=== PATIENT | female | born 1980 | race Caucasian/White ===

== ENCOUNTER 2016-12-23 13:32 | Emergency (ER) | payer MEDICARE ==
[2016-12-23] MEDS ORDERED: DOXYCYCLINE HYCLATE 100 MG TABLET PO ONE (14:39)
[2016-12-23] MEDS ORDERED: PREDNISONE 20 MG TABLET PO ONE (14:39)
--- NOTE | 2016-12-23 14:41 | ER Document Report ---
HPI - HPI Patient complains to provider of: skin infection Pain Level: 4 Context: Patient is a 36-year-old female that comes emergency department for chief complaint of a painful area in her left groin, she states that she thinks it was an ingrown hair, it started over a week ago, she states she pressed on the area and she did get bloody drainage out of it but it still hurts. She also reports a cough for over 1 week with green sputum production and some sinus congestion. She denies fevers, nausea or vomiting. She denies any daily medications. She smokes. She has had a hysterectomy. - DERM Skin Color: Normal Past Medical History - General Information source: Patient - Social History Smoking Status: Current Every Day Smoker Smoking Education Provided: Yes - <3 min Frequency of alcohol use: None Drug Abuse: None Lives with: Family Family History: Reviewed & Not Pertinent - Medical History Medical History: Negative Renal/ Medical History: Denies: Hx Peritoneal Dialysis Past Surgical History: Reports: Hx Hysterectomy - Immunizations Immunizations up to date: Yes Hx Diphtheria, Pertussis, Tetanus Vaccination: Yes Vertical Provider Document - CONSTITUTIONAL General Appearance: WD/WN, No Apparent Distress - INFECTION CONTROL TRAVEL OUTSIDE OF THE [place] IN LAST 30 DAYS: No - HEENT HEENT: Atraumatic, Normal ENT Exam, Normocephalic - NECK Neck: Normal Inspection - RESPIRATORY Respiratory: Other - Fairly regular nonproductive congested sounding cough with a few coarse breath sounds, no wheezing, good air movement otherwise O2 Sat by Pulse Oximetry: 96 - CARDIOVASCULAR Cardiovascular: Regular Rate, Regular Rhythm - GI/ABDOMEN Gastrointestinal: Abdomen Soft, Abdomen Non-Tender - BACK Back: Normal Inspection - MUSCULOSKELETAL/EXTREMETIES Musculoskeletal/Extremeties: MAEW, FROM, Non-Tender - NEURO Level of Consciousness: Awake, Alert, Appropriate - DERM Integumentary: negative: Abscess - There is an erythematous somewhat tender area located in the left inguinal region adjacent to the labia majora, no induration, no fluctuance, no palpable abscess, area has an opening where it appears to have already drained, mild surrounding erythema. FRANCISCO J Quiros present during exam Course - Re-evaluation Re-evalutation: There is no induration or fluctuance suggesting an abscess, there is a opening where it already has appeared to be drained, however there is some surrounding erythema and tenderness to the area. Discussed with patient, patient will be placed on doxycycline, recommended warm compress, discussed formation of abscess and return precautions, also treating with prednisone because of smoking and ongoing cough along with the doxycycline. Discussed smoking cessation, patient states understanding and agreement. - Vital Signs Vital signs: Temp Pulse Resp BP Pulse Ox 98.1 F 100 14 138/97 H 96 12/23/16 13:44 12/23/16 13:44 12/23/16 13:44 12/23/16 13:44 12/23/16 13:44 Discharge - Discharge Clinical Impression: Skin infection, Cough, Tobacco abuse Condition: Stable Disposition: HOME, SELF-CARE Additional Instructions: There is an infected area of skin, probably the location of a hair follicle, take the doxycycline as prescribed, apply warm compress to the area. At this time there is no drainable abscess, if the area becomes hard, swollen, or he has spreading redness around the area please be seen again. Stop smoking. Take prednisone as prescribed. Also return for difficulty breathing, fever, or any other concerning or worsening symptoms. After completion of the antibiotics, take the Diflucan to avoid yeast infection. Prescriptions: Doxycycline Hyclate 100 mg PO BID #14 capsule Fluconazole [Diflucan] 150 mg PO ONCE PRN #1 tablet PRN Reason: Prednisone [Deltasone 10 mg Tablet] 10 mg PO ASDIR PRN #21 tablet PRN Reason:
[2016-12-23 15:12] VITALS: BP 130/81
== END 2016-12-23 15:11 | disposition home or self-care (01) ==
LOC: ER 13:32
DX: L08.9 Local infection of the skin and subcutaneous tissue, unspecified (principal); R05 Cough; F17.200 Nicotine dependence, unspecified, uncomplicated; Z90.710 Acquired absence of both cervix and uterus
CPT/HCPCS: 99282; A9270 ×2; J7512

== ENCOUNTER 2016-12-28 13:12 | Emergency (ER) | payer MEDICARE ==
[2016-12-28] MEDS ORDERED: ACETAMINOPHEN 325 MG TABLET PO ONE (14:20)
[2016-12-28] MEDS ORDERED: IBUPROFEN 800 MG TABLET PO ONE (14:20)
--- NOTE | 2016-12-28 14:31 | RADIOLOGY REPORT (SQ) ---
EXAM DESCRIPTION: SACRUM AND COCCYX COMPLETED DATE/TIME: 12/28/2016 2:21 pm REASON FOR STUDY: ? fx coccyx COMPARISON: None. NUMBER OF VIEWS: Three views. TECHNIQUE: AP, lateral, and tilt views of the sacrum and coccyx. LIMITATIONS: None. FINDINGS: MINERALIZATION: Normal. BONES: No acute fracture or dislocation. No worrisome bone lesions. SOFT TISSUES: No soft tissue swelling. No foreign body. OTHER: No other significant finding. IMPRESSION: NEGATIVE STUDY OF THE SACRUM AND COCCYX. TECHNICAL DOCUMENTATION: JOB ID: [id number] [employer]- All Rights Reserved
--- NOTE | 2016-12-28 14:46 | ER Document Report ---
HPI - HPI Patient complains to provider of: fell on buttocks Onset: This morning Onset/Duration: Sudden Quality of pain: Throbbing - intense Pain Level: 4 Context: 36 yo normally healthy female carrying covers and tripped going down the stairs and fell on buttocks at 0730, worried that she fx her coccyx. fx coccyx age 32, . feels the same. No radiculopathy or saddle anesthesia. Pt can't take ultram, did ok with hydrocodone. Associated Symptoms: None Exacerbated by: Movement, Walking - waddling due to pain Similar symptoms previously: Yes Recently seen / treated by doctor: No - DERM Skin Color: Normal, [place] Past Medical History - General Information source: Patient - Social History Smoking Status: Current Every Day Smoker Chew tobacco use (# tins/day): No Frequency of alcohol use: None Drug Abuse: None Family History: Reviewed & Not Pertinent Patient has suicidal ideation: No Patient has homicidal ideation: No Renal/ Medical History: Denies: Hx Peritoneal Dialysis Psychiatric Medical History: Reports: Hx Depression - anxiety Past Surgical History: Reports: Hx Appendectomy, Hx Cholecystectomy, Hx Hysterectomy, Hx Tonsillectomy - Immunizations Immunizations up to date: Yes Hx Diphtheria, Pertussis, Tetanus Vaccination: Yes Vertical Provider Document - CONSTITUTIONAL Agree With Documented VS: Yes Exam Limitations: No Limitations General Appearance: No Apparent Distress - INFECTION CONTROL TRAVEL OUTSIDE OF THE [place] IN LAST 30 DAYS: No - HEENT HEENT: Atraumatic, Normocephalic - NECK Neck: Supple - RESPIRATORY Respiratory: Breath Sounds Normal, No Respiratory Distress O2 Sat by Pulse Oximetry: 100 - CARDIOVASCULAR Cardiovascular: Regular Rate, Regular Rhythm - GI/ABDOMEN Gastrointestinal: Abdomen Soft, Abdomen Non-Tender - BACK Back: Normal Inspection - mild tender over sacrum and right ischium - MUSCULOSKELETAL/EXTREMETIES Musculoskeletal/Extremeties: MAEW, FROM, Tender - see above - NEURO Level of Consciousness: Awake, Alert Deep Tendon Reflexes: 2+ - jolanta ankle and patellar Course - Re-evaluation Re-evalutation: 12/28/16 15:13 xrays negative. I checked in [place] controlled substance website and she does not have any opiate prescription so I will give her a limited prescription for this acute pain from the fall. She is asking for an opiate pain pill prescription she states Motrin and Tylenol is not helping and she cannot take Ultram. 12/28/16 15:14 - Vital Signs Vital signs: Temp Pulse Resp BP Pulse Ox 97.9 F 116 H 20 115/90 H 100 12/28/16 13:18 12/28/16 13:18 12/28/16 13:18 12/28/16 13:18 12/28/16 13:18 Discharge - Discharge Clinical Impression: contusion coccyx Contusion of buttock Qualifiers: Encounter type: initial encounter Qualified Code(s): S30.0XXA - Contusion of lower back and pelvis, initial encounter Condition: Good Disposition: HOME, SELF-CARE Instructions: Anti-Inflammatory Medication ([facility]), Contusion ([facility]), Oral Narcotic Medication ([facility]) Additional Instructions: heat or ice to area to er if worse see orthopedics if persists Please complete the patient satisfaction survey if you get one, and return it.. If you do not receive a survey, then you can go to the [facility] website, [email or web address] and place your comments about your very good care. Thank you very much. It was a pleasure being your medical provider today. Prescriptions: Hydrocodone Bit/Acetaminophen [Hydrocodon-Acetaminophen 5-325] 1 each PO Q4HP PRN #10 tablet PRN Reason: Ibuprofen [Motrin 800 mg Tablet] 800 mg PO Q8HP PRN #30 tablet PRN Reason: Referrals: DEVONTE SIDDIQUI MD [ACTIVE STAFF] - Follow up as needed
--- NOTE | 2016-12-28 14:49 | RADIOLOGY REPORT (SQ) ---
EXAM DESCRIPTION: L SPINE WHOLE COMPLETED DATE/TIME: 12/28/2016 2:21 pm REASON FOR STUDY: ? fx coccyx COMPARISON: None. NUMBER OF VIEWS: Five views including obliques. TECHNIQUE: AP, lateral, oblique, and sacral radiographic images acquired of the lumbar spine. LIMITATIONS: None. FINDINGS: MINERALIZATION: Normal. SEGMENTATION: Normal. No transitional anatomy. ALIGNMENT: Normal. VERTEBRAE: Maintained height. No fracture or worrisome bone lesion. DISCS: Preserved height. No significant osteophytes or end plate irregularity. POSTERIOR ELEMENTS: Pedicles and facets are intact. No pars defect or posterior arch defects. HARDWARE: None in the spine. PARASPINAL SOFT TISSUES: Normal. PELVIS: Intact as visualized. No fractures or worrisome bone lesions. SI joints intact. OTHER: No other significant finding. IMPRESSION: NORMAL 5 VIEW LUMBAR SPINE. TECHNICAL DOCUMENTATION: JOB ID: [id number] [email or web address]- All Rights Reserved
[2016-12-28] MEDS ORDERED: OXYCODONE HCL IR 5 MG TABLET PO ONE (14:50)
[2016-12-28 15:21] VITALS: BP 112/86
== END 2016-12-28 15:20 | disposition home or self-care (01) ==
LOC: ER 13:12
DX: S30.0XXA Contusion of lower back and pelvis, initial encounter (principal); W10.9XXA Fall (on) (from) unspecified stairs and steps, initial encounter; Y92.009 Unspecified place in unspecified non-institutional (private) residence as the place of occurrence of the external cause; F17.200 Nicotine dependence, unspecified, uncomplicated
CPT/HCPCS: 99283; 72220; 72110; A9270 ×2

== ENCOUNTER 2016-12-30 13:07 | Emergency (ER) | payer MEDICARE ==
[2016-12-30] MEDS ORDERED: OXYCODONE-ACETAMINOPHEN 5-325 MG TABLET PO ONE (14:03)
--- NOTE | 2016-12-30 14:12 | ER Document Report ---
HPI - HPI Patient complains to provider of: Right hip and leg pain Onset: Other - 2 days Onset/Duration: Persistent Quality of pain: Sharp Pain Level: 4 Context: Patient states that she slipped falling down 5 steps 2 days ago. Patient states she landed on her bottom. Patient states she was seen here 2 days ago for this problem and denies any new injury. Patient states that she is out of pain medication and she feels as though the pain is worsening. Patient states pain radiates to lateral aspect of right thigh down to the level of her knee. Patient denies any numbness but does complain of tingling to right leg. Patient denies any urinary retention or incontinence. Patient denies any fever or IV drug use. Patient denies any previous history of any low back problems. Associated Symptoms: Other - Low back, right leg pain Exacerbated by: Movement Relieved by: Denies Similar symptoms previously: No Recently seen / treated by doctor: Yes - ROS ROS below otherwise negative: Yes Systems Reviewed and Negative: Yes All other systems reviewed and negative - CONSTITUTIONAL Constitutional: DENIES: Fever - NEURO Neurology: DENIES: Weakness - GASTROINTESTINAL Gastrointestinal: DENIES: Nausea - URINARY Notes: No retention - MUSCULOSKELETAL Musculoskeletal: REPORTS: Extremity pain, Back Pain - DERM Skin Color: Normal Skin Problems: None Past Medical History - General Information source: Patient - Social History Smoking Status: Current Every Day Smoker Drug Abuse: None Occupation: None Lives with: Family Family History: Reviewed & Not Pertinent Renal/ Medical History: Denies: Hx Peritoneal Dialysis Psychiatric Medical History: Reports: Hx Anxiety, Hx Depression Past Surgical History: Reports: Hx Appendectomy, Hx Cholecystectomy, Hx Hysterectomy, Hx Tonsillectomy - Immunizations Immunizations up to date: Yes Hx Diphtheria, Pertussis, Tetanus Vaccination: Yes Vertical Provider Document - CONSTITUTIONAL Agree With Documented VS: Yes Exam Limitations: No Limitations General Appearance: WD/WN, No Apparent Distress Notes: PHYSICAL EXAMINATION: GENERAL: Well-appearing, well-nourished and in no acute distress. HEAD: Atraumatic, normocephalic. EYES: sclera clear, anicteric, conjunctiva are normal. ENT: nares patent, Moist mucous membranes. NECK: Normal range of motion, supple no lymphadenopathy LUNGS: respirations unlabored HEART: Regular rate and rhythm without murmurs EXTREMITIES: Normal range of motion, no pitting or edema. No cyanosis. Gait normal, pt ambulates without difficulty BACK: Right lower lumbar paraspinal tenderness, lower lumbar midline tenderness , no deformities or step-offs. No CVA tenderness. NEUROLOGICAL: Cranial nerves grossly intact. Normal speech, normal gait. No saddle anesthesia. Negative straight leg test, no footdrop PSYCH: Normal mood, normal affect. SKIN: Warm, Dry, normal turgor, no rashes or lesions noted. - INFECTION CONTROL TRAVEL OUTSIDE OF THE [place] IN LAST 30 DAYS: No - RESPIRATORY O2 Sat by Pulse Oximetry: 99 Course - Re-evaluation Re-evalutation: The patient presents with low back pain without signs of spinal cord compression , cauda equina syndrome, infection, aneurysm, or other serious etiology. The patient is neurologically intact. Given the extremely risk of these diagnoses further testing and evaluation for these possibilities does not appear to be indicated at this time. Patient has been instructed to return if the symptoms worsen or change in any way. 12/30/16 14:12 Review of controlled substance database demonstrates that patient only received narcotic prescription from the ER 2 days ago. Patient advised of narcotic pain policy procedure in the emergency department. Patient encouraged to follow-up with the primary doctor for further evaluation and management of any continued back pain. - Vital Signs Vital signs: Temp Pulse Resp BP Pulse Ox 97.6 F 92 16 127/96 H 99 12/30/16 13:12 12/30/16 13:12 12/30/16 13:12 12/30/16 13:12 12/30/16 13:12 - Diagnostic Test Radiology reviewed: Reports reviewed - From previous ER visit Discharge - Discharge Clinical Impression: Low back pain Qualifiers: Chronicity: acute Back pain laterality: right Sciatica presence: with sciatica Sciatica laterality: sciatica of right side Qualified Code(s): M54.41 - Lumbago with sciatica, right side Radiculopathy Qualifiers: Spinal region: unspecified Qualified Code(s): M54.10 - Radiculopathy, site unspecified Condition: Stable Disposition: HOME, SELF-CARE Instructions: Family Physicians / Practices, Radiculopathy ([facility]) Additional Instructions: Return immediately for any new or worsening symptoms Followup with your primary care provider, call tomorrow to make a followup appointment LOW BACK PAIN: Three out of every four people will have an episode of disabling back pain during their lifetime. Most commonly the pain is due to straining of the muscles and ligaments in the low back. Usual treatment includes: (1) Rest on a firm surface. Avoid lying on your stomach. (2) Ice pack the painful area. After a few days, gentle heat may be used intermittently to relax the area, or ice packs can be continued. (3) Medication may be needed -- muscle relaxers and antiinflammatory medicines are commonly used. (4) As the back improves, exercises are prescribed to strengthen the back and abdominal muscles. Your doctor will advise you on the proper care for your back at each stage in your recovery. You may be better in a few days -- or healing may take several weeks. If new symptoms of a "herniated disc" (radiation of pain, numbness, or tingling down the back of the leg or weakness in the leg) occur, you should be re-examined. Further testing may be necessary. ORAL NARCOTIC MEDICATION: You have been given a prescription for pain control. This medication is a narcotic. It's best taken with food, as nausea can result if taken on an empty stomach. Don't operate machinery or drive within six hours of taking this medication. Do not combine this medicine with alcohol, or with any medication which can cause sedation (such as cold tablets or sleeping pills) unless you get permission from the physician. Narcotics tend to cause constipation. If possible, drink plenty of fluids and eat a diet high in fiber and fruits. Please be aware that prescription narcotics also have the potential for abuse. People become addicted to these medications because of the general sense of wellbeing that they induce. This feeling along with a significant reduction in tension, anxiety, and aggression provides a stimulating seductive quality to these drugs. Once your pain is under control, we encourage you to discard your unused narcotics. ICE PACKS: Apply ice packs frequently against the painful area. Many different schedules are recommended, such as "20 minutes on, 20 minutes off" or "one hour ice, two hours rest." If you need to work, you may need to go longer between ice treatments. You should plan to have the area ice packed AT LEAST one fourth of the time. The ice should be applied over the wrap, tape, or splint, or over a layer of cloth -- not directly against the skin. Some ice bags have a built-in cloth and can be put directly on the skin. WARM PACKS: After approximately two days, apply gentle heat (such as a heating pad or hot water bottle) for about 20 to 30 minutes about every two hours -- at least four times daily. Warmth and elevation will help you make a more rapid recovery , and will ease the pain considerably. Do not use HOT heat, and never apply heat for longer than 30 minutes. The continuous heat can invisibly damage skin and muscles -- even when no burn is seen on the surface. Damaged muscles can make you MORE sore. FOLLOW-UP CARE: If you have been referred to a physician for follow-up care, call the physician s office for an appointment as you were instructed or within the next two days. If you experience worsening or a significant change in your symptoms, notify the physician immediately or return to the Emergency Department at any time for re-evaluation. Prescriptions: Oxycodone HCl/Acetaminophen [Percocet 5-325 mg Tablet] 1 tab PO ASDIR PRN #12 tablet PRN Reason: Referrals: [facility] [Provider Group] - Follow up as needed [facility] [Provider Group] - Follow up as needed
[2016-12-30 14:33] VITALS: BP 119/75
== END 2016-12-30 14:33 | disposition home or self-care (01) ==
LOC: ER 13:07
DX: M54.41 Lumbago with sciatica, right side (principal); M54.10 Radiculopathy, site unspecified; W10.9XXA Fall (on) (from) unspecified stairs and steps, initial encounter; F17.200 Nicotine dependence, unspecified, uncomplicated
CPT/HCPCS: 99282; A9270

== ENCOUNTER → 2017-02-22 | Outpatient (CLI) | payer MEDICARE, MEDICAID ==
--- NOTE | 2017-02-22 14:23 | RADIOLOGY REPORT (SQ) ---
EXAM DESCRIPTION: MRI LT LOWER JOINT WITHOUT COMPLETED DATE/TIME: 02/22/2017 1:41 pm REASON FOR STUDY: SPRAIN OF ANTERIOR CRUCIATE LIGAMENT OF LEFT KNEE (S83.512A) S83.512A SPRAIN OF A NTERIOR CRUCIATE LIGAMENT OF LEFT KNEE, COMPARISON: None. TECHNIQUE: Leftknee images acquired and stored on PACS. Multiplanar images include fat sensitive se quences as T1, water sensitive sequences as FST2 or STIR, cartilage sensitive sequences as FSPD, and gradient echo sequences. LIMITATIONS: None. FINDINGS: JOINT AND BURSAE: No effusion. BONE CORTEX AND MARROW: No alteration of signal to suggest marrow replacement. No worrisome bone lesi ons. No occult fracture. ACL: Intact anterior band on sagittal T2 and gradient echo images 12 and 13. No degeneration or gang lion cyst. PCL: Intact. MCL: Intact. No periligamentous edema or fluid. LCL: Intact. No periligamentous edema or fluid. MEDIAL MENISCUS: No tears. No abnormal signal. LATERAL MENISCUS: No tears. No abnormal signal. MEDIAL COMPARTMENT: Cartilage preserved. No bone bruises or reactive marrow edema. No osteophytes. LATERAL COMPARTMENT: Cartilage preserved. No bone bruises or reactive marrow edema. No osteophytes. PATELLA: No chondromalacia. No subchondral cysts. Medial and lateral retinacula intact. EXTENSOR MECHANISM: Intact. Quadriceps and patella tendons normal. SOFT TISSUES: Adjacent muscles and subcutaneous tissues normal. Normal flow void in popliteal artery and vein. OTHER: No other significant finding. IMPRESSION: NORMAL MRI OF THE KNEE. TECHNICAL DOCUMENTATION: JOB ID: [id number] [employer]- All Rights Reserved
== END ==
LOC: RAD 12:35
PROVIDERS: ATTEND Family Medicine
DX: S83.512A Sprain of anterior cruciate ligament of left knee, initial encounter (principal); X58.XXXA Exposure to other specified factors, initial encounter

== ENCOUNTER → 2017-06-19 | Outpatient (CLI) | payer MEDICARE, MEDICAID ==
[2017-06-19 13:53] LABS: ABSOLUTE BASOPHILS # (AUTO) 0.1 10^3/uL (0.0-0.2); ABSOLUTE EOSINOPHILS # (AUTO) 0.3 10^3/uL (0.0-0.6); ABSOLUTE LYMPHOCYTES (AUTO) 4.1 10^3/uL (0.5-4.7); ABSOLUTE MONOCYTES (AUTO) 0.5 10^3/uL (0.1-1.4); ABSOLUTE NEUT (AUTO) 4.1 10^3/uL (1.7-8.2); EOSINOPHILS % (AUTO) 3.4 % (0-6); HEMATOCRIT 42.5 % (36.0-47.0); HEMOGLOBIN 14.6 g/dL (12.0-15.5); LYMPHOCYTES % (AUTO) 45.2 % (13-45); MEAN CORPUSCULAR HEMOGLOBIN 29.8 pg (27.0-33.4); MEAN CORPUSCULAR HGB CONC 34.3 g/dL (32.0-36.0); MEAN CORPUSCULAR VOLUME 87 fl (80-97); MONOCYTES % (AUTO) 5.4 % (3-13); PLATELET COUNT 317 10^3/uL (150-450); RED BLOOD COUNT 4.89 10^6/uL (3.72-5.28); RED CELL DISTRIBUTION WIDTH 13.1 % (11.5-14.0); TOTAL CELLS COUNTED % (AUTO) 100 %
--- NOTE | 2017-06-19 14:05 | EKG REPORT ---
SEVERITY:- BORDERLINE ECG - SINUS RHYTHM LEFT ATRIAL ABNORMALITY : Confirmed by: Igor Adame MD 19-Jun-2017 14:04:05
[2017-06-19 14:08] LABS: ALANINE AMINOTRANSFERASE 31 U/L (9-52); ALBUMIN 4.5 g/dL (3.5-5.0); ALKALINE PHOSPHATASE 69 U/L (38-126); ANION GAP 9 (5-19); ASPARTATE AMINO TRANSFERASE 23 U/L (14-36); BILIRUBIN,DIRECT 0.2 mg/dL (0.0-0.4); BILIRUBIN,TOTAL 0.5 mg/dL (0.2-1.3); BLOOD UREA NITROGEN 13 mg/dL (7-20); CALCIUM 9.8 mg/dL (8.4-10.2); CARBON DIOXIDE 30 mmol/L (22-30); CHLORIDE 104 mmol/L (98-107); GLUCOSE 100 mg/dL (75-110); POTASSIUM 5.3 mmol/L (3.6-5.0); SODIUM 143.3 mmol/L (137-145); TOTAL PROTEIN 6.9 g/dL (6.3-8.2)
--- NOTE | 2017-06-19 14:23 | RADIOLOGY REPORT (SQ) ---
EXAM DESCRIPTION: CHEST 2 VIEWS COMPLETED DATE/TIME: 06/19/2017 1:23 pm REASON FOR STUDY: ENCOUNTER FOR PREPROCEDURAL RESPIRATORY EXAMINATION COMPARISON: None. TECHNIQUE: Frontal and lateral radiographic views of the chest acquired. NUMBER OF VIEWS: Two view. LIMITATIONS: None. FINDINGS: LUNGS AND PLEURA: No opacities, masses or pneumothorax. No pleural effusion. MEDIASTINUM AND HILAR STRUCTURES: No masses or contour abnormalities. HEART AND VASCULAR STRUCTURES: Heart normal size. No evidence for failure. BONES: No acute findings. HARDWARE: None in the chest. OTHER: No other significant finding. IMPRESSION: NO SIGNIFICANT RADIOGRAPHIC FINDING IN THE CHEST. TECHNICAL DOCUMENTATION: JOB ID: [id number] [employer]- All Rights Reserved Reading location - IP/workstation name: [email or web address]
== END ==
LOC: RAD 13:05
PROVIDERS: ATTEND Surgery
DX: Z01.810 Encounter for preprocedural cardiovascular examination (principal); Z01.811 Encounter for preprocedural respiratory examination; Z01.812 Encounter for preprocedural laboratory examination; Z01.818 Encounter for other preprocedural examination; E66.01 Morbid (severe) obesity due to excess calories; K21.9 Gastro-esophageal reflux disease without esophagitis; R53.82 Chronic fatigue, unspecified
CPT/HCPCS: 36415; 71046; 80053; 84443; 85025; 93005; 93010

== ENCOUNTER 2017-08-23 22:25 | Emergency (ER) | payer MEDICARE, MEDICAID ==
[2017-08-24 00:30] LABS: ABSOLUTE BASOPHILS # (AUTO) 0.1 10^3/uL (0.0-0.2); ABSOLUTE EOSINOPHILS # (AUTO) 0.1 10^3/uL (0.0-0.6); ABSOLUTE MONOCYTES (AUTO) 1.4 10^3/uL (0.1-1.4); ABSOLUTE NEUT (AUTO) 10.8 10^3/uL (1.7-8.2); BASOPHILS % (AUTO) 0.5 % (0-2); EOSINOPHILS % (AUTO) 0.8 % (0-6); HEMATOCRIT 26.7 % (36.0-47.0); HEMOGLOBIN 8.9 g/dL (12.0-15.5); LYMPHOCYTES % (AUTO) 13.9 % (13-45); MEAN CORPUSCULAR HEMOGLOBIN 28.4 pg (27.0-33.4); MEAN CORPUSCULAR HGB CONC 33.5 g/dL (32.0-36.0); MEAN CORPUSCULAR VOLUME 85 fl (80-97); MONOCYTES % (AUTO) 9.6 % (3-13); PLATELET COUNT 426 10^3/uL (150-450); RED BLOOD COUNT 3.14 10^6/uL (3.72-5.28); SEGMENTED NEUTROPHILS % (AUTO) 75.2 % (42-78); TOTAL CELLS COUNTED % (AUTO) 100 %; WHITE BLOOD COUNT 14.4 10^3/uL (4.0-10.5)
[2017-08-24 00:39] LABS: ALANINE AMINOTRANSFERASE 24 U/L (9-52); ALBUMIN 3.4 g/dL (3.5-5.0); ALKALINE PHOSPHATASE 82 U/L (38-126); ANION GAP 15 (5-19); ASPARTATE AMINO TRANSFERASE 24 U/L (14-36); BILIRUBIN,DIRECT 0.4 mg/dL (0.0-0.4); BILIRUBIN,TOTAL 0.9 mg/dL (0.2-1.3); BLOOD UREA NITROGEN 11 mg/dL (7-20); CALCIUM 8.5 mg/dL (8.4-10.2); CARBON DIOXIDE 23 mmol/L (22-30); CHLORIDE 99 mmol/L (98-107); GLUCOSE 107 mg/dL (75-110); LIPASE 27.5 U/L (23-300); POTASSIUM 3.6 mmol/L (3.6-5.0); SODIUM 136.9 mmol/L (137-145)
--- NOTE | 2017-08-24 01:08 | RADIOLOGY REPORT (SQ) ---
EXAM DESCRIPTION: XR CHEST 1 VIEW COMPLETED DATE/TME: 08/24/2017 00:00 CLINICAL HISTORY: rib pain COMPARISON: 06/19/2017 FINDINGS: Single frontal view of the chest. Atherosclerotic calcification aortic arch. Heart is not enlarged. No consolidation, pneumothorax, or pleural effusion. No displaced rib fractures identified. Upper abdominal soft tissues are unremarkable. IMPRESSION: 1. No acute pulmonary process identified.
[2017-08-24] MEDS ORDERED: ONDANSETRON HCL INJ/PF 4 MG/2 ML SDV IV ONE (01:20)
[2017-08-24] MEDS ORDERED: ACETAMINOPHEN 325 MG TABLET PO ONE (01:33)
[2017-08-24] MEDS ORDERED: HALOPERIDOL LACTATE INJ 5 MG/1 ML VIAL IV ONE (01:33)
[2017-08-24] MEDS ORDERED: LIDOCAINE 5% (700 MG) TRANSDERMAL ADH..PATCH TP ONE (01:33)
[2017-08-24] MEDS ORDERED: NORMAL SALINE 1000 ML 1,000 ML IV ONE (01:35)
--- NOTE | 2017-08-24 01:35 | ER Document Report ---
ED General - General Chief Complaint: Flank Pain Stated Complaint: RIB PAIN Time Seen by Provider: 08/23/17 23:52 Notes: Patient is a 36 year old female with a past medical history of anxiety, depression, recent gastric sleeve procedure done 6 days ago in [place], prior history of a Tabatha fundoplication, cholecystectomy, and appendectomy who presents with 2 days of left upper abdominal pain and left lower rib pain. The patient describes it as a cramping, throbbing, aching pain that started after she apparently caught a child who was about to fall. She states it feels like a muscle strain. Moving worsens the pain. Tylenol has not improved the pain. She has had a fever at home. She also notes an associated migraine headache which she describes as a throbbing, constant pain behind both of her eyes that has been progressively worsening since onset. She has not contacted her primary care doctor or surgeon regarding today's concerns. She has not had any vomiting, diarrhea, cough, sputum production, neck pain, weakness, numbness or confusion. TRAVEL OUTSIDE OF THE [place] IN LAST 30 DAYS: No - Related Data Allergies/Adverse Reactions: gabapentin Allergy (Verified 08/23/17 22:32) lamotrigine [From Lamictal] Allergy (Verified 12/30/16 13:11) Sulfa (Sulfonamide Antibiotics) Allergy (Verified 08/23/17 22:32) sumatriptan [From Imitrex] Allergy (Verified 08/23/17 22:32) Past Medical History - General Information source: Patient - Social History Smoking Status: Never Smoker Chew tobacco use (# tins/day): No Frequency of alcohol use: None Drug Abuse: None Lives with: Spouse/Significant other Family History: Reviewed & Not Pertinent Patient has suicidal ideation: No Patient has homicidal ideation: No Renal/ Medical History: Denies: Hx Peritoneal Dialysis Psychiatric Medical History: Reports: Hx Anxiety, Hx Depression Past Surgical History: Reports: Hx Appendectomy, Hx Cholecystectomy, Hx Hysterectomy, Hx Tonsillectomy - Immunizations Immunizations up to date: Yes Hx Diphtheria, Pertussis, Tetanus Vaccination: Yes Review of Systems - Review of Systems Notes: Constitutional: Positive for fever. HENT: Negative for sore throat. Eyes: Negative for visual changes. Cardiovascular: Negative for chest pain. Respiratory: Negative for shortness of breath. Gastrointestinal: Positive for upper abdominal pain Genitourinary: Negative for dysuria. Musculoskeletal: Negative for back pain. Skin: Negative for rash. Neurological: positive for headache 10 point ROS negative except as marked above and in HPI. Physical Exam - Vital signs Vitals: Temp Pulse Resp BP Pulse Ox 102.8 F H 125 H 20 114/62 98 08/23/17 23:25 08/23/17 23:25 08/23/17 23:25 08/23/17 23:25 08/23/17 23:25 Interpretation: Tachycardic, Febrile Notes: PHYSICAL EXAMINATION: GENERAL: Appears moderately uncomfortable but in no acute distress HEAD: Atraumatic, normocephalic. EYES: Pupils equal round and reactive to light, extraocular movements intact, sclera anicteric, conjunctiva are normal. ENT: nares patent, oropharynx clear without exudates. Moderately dry mucous membranes. NECK: Normal range of motion, supple without lymphadenopathy LUNGS: Breath sounds clear to auscultation bilaterally and equal. No wheezes rales or rhonchi. HEART: Regular tachycardia without murmurs ABDOMEN: Soft, tenderness to the left upper and epigastric regions of the abdomen on palpation, normoactive bowel sounds. No guarding, no rebound. No masses appreciated. EXTREMITIES: Normal range of motion, no pitting or edema. No cyanosis. NEUROLOGICAL: Face symmetric. Tongue protrudes midline. Extraocular motions intact. Pupils are 2 mm and equally reactive. Normal speech, normal gait. 5 out of 5 strength in both the distal and proximal upper and lower extremities bilaterally. Sensation is grossly intact throughout. Finger to nose testing normal. Pronator drift normal. PSYCH: Moderately anxious SKIN: Warm, Dry, normal turgor, no rashes or lesions noted. Course - Re-evaluation Re-evalutation: 08/24/17 01:33 The patient presents with 24 hours of left upper abdominal pain as well as left lower rib pain 6 days after having a gastric sleeve procedure. The patient's abdominal exam is benign although does have some focal tenderness to the epigastrium and left upper quadrant. She does not have clinical history or symptoms to suggest an acute pulmonary embolus. Chest x-ray without evidence of acute pneumonia. Labs show anemia likely secondary to her recent gastric sleeve procedure as well as reversal of a Tabatha fundoplication. She does have a mild leukocytosis. LFTs and lipase are otherwise unremarkable. She is not . Urinalysis is pending. I have emphasized to the patient that I would like to proceed with a CT of her abdomen and pelvis with oral and IV contrast to evaluate for the possibility of a postsurgical complication as well as a possible anastomotic leak. I have emphasized to her that fever would be an atypical feature of a musculoskeletal strain and that I have a very low suspicion for this diagnosis. I have again emphasized with patient and her at the bedside that I am worried about the possibility of a more serious diagnosis. The patient however currently declines a CT scan stating she does not wish to drink oral contrast and does not wish to have another CT scan at this time point. Will symptomatically treat her abdominal pain and then reassess the patient. 08/24/17 02:05 I have gone back to the patient and reemphasized that I remain very concerned about her ongoing abdominal pain and fever and do not believe that it is safe to proceed without further imaging of her abdomen pelvis given her recent surgical procedure. She has now agreed to proceed with a CT abdomen pelvis. 08/24/17 05:09 CT the abdomen pelvis does demonstrate an intra-abdominal abscess as well as a hematoma along the suture line of the gastric sleeve. I did discuss these findings with our surgeon director translational Dr. Dior who states that this patient should return to the facility where the surgery was done 6 days ago. I did contact [facility] and spoke with the surgeon director translational who has accepted the patient. I have updated the patient on her care plan, started IV Zosyn and made her formally n.p.o. - Vital Signs Vital signs: Temp Pulse Resp BP Pulse Ox 98.9 F 125 H 17 112/72 93 08/24/17 05:00 08/23/17 23:25 08/24/17 04:14 08/24/17 04:14 08/24/17 04:14 - Laboratory Result Diagrams: 08/24/17 00:09 08/24/17 00:09 Laboratory results interpreted by me: 08/24/17 08/24/17 08/24/17 00:09 00:09 00:09 WBC 14.4 H RBC 3.14 L Hgb 8.9 L Hct 26.7 L Absolute Neutrophils 10.8 H Sodium 136.9 L Total Protein 6.0 L Albumin 3.4 L Urine Ketones 80 H Urine Blood SMALL H - Diagnostic Test Radiology reviewed: Image reviewed, Reports reviewed Radiology results interpreted by me: 08/24/17 03:35 Chest x-ray: No acute infiltrate or pneumothorax Discharge - Discharge Clinical Impression: Intra-abdominal abscess Postoperative complication Qualifiers: Surgical complication system/body Area: digestive system Surgical complication type: unspecified Procedure type: digestive system Qualified Code(s): K91.89 - Other postprocedural complications and disorders of digestive system Sepsis Qualifiers: Sepsis type: sepsis due to unspecified organism Qualified Code(s): A41.9 - Sepsis, unspecified organism Condition: Fair Disposition: [facility] Referrals: ANDREW AGUILLON MD [Primary Care Provider] - Follow up as needed
[2017-08-24] MEDS: FENTANYL CITRATE INJ/PF 100 MCG/2 ML AMPUL IV PRN ×3 (01:46→04:14)
[2017-08-24 02:06] LABS: APPEARANCE,URINE SLIGHTLY-CLOUDY; BILIRUBIN,URINE NEGATIVE (NEGATIVE); COLOR,URINE YELLOW; GLUCOSE, URINE NEGATIVE (NEGATIVE); KETONES,URINE 80 mg/dL (NEGATIVE); LEUKOCYTE ESTERASE,URINE NEGATIVE (NEGATIVE); NITRITE,URINE NEGATIVE (NEGATIVE); PROTEIN,URINE NEGATIVE (NEGATIVE); URINE SPECIFIC GRAVITY 1.016; UROBILINOGEN,URINE NEGATIVE mg/dL (<2.0)
[2017-08-24] MEDS ORDERED: PIPERACILLIN/TAZOBACTAM 3.375 GM VIAL IV ONE (04:35)
--- NOTE | 2017-08-24 04:38 | RADIOLOGY REPORT (SQ) ---
EXAM DESCRIPTION: CT ABDOMEN PELVIS WITH IV CONTRAST COMPLETED DATE/TME: 08/24/2017 00:00 CLINICAL HISTORY: fever, post gastric sleeve. Left upper quadrant pain. COMPARISON: None Available. TECHNIQUE: CT of the abdomen and pelvis performed following IV administration of 100 mL of Isovue-370. Delayed images obtained. Oral contrast administered. DLP: 2128.75 mGycm FINDINGS: Lung Bases: The visualized lung bases are clear. Bones: No destructive bone lesions identified. Mild endplate spondylosis of the visualized spine. Abdomen: Liver: The liver has normal size and density. No intrahepatic mass or biliary dilatation. Gallbladder: Prior cholecystectomy. Spleen, Pancreas, and Adrenal Glands: The spleen, pancreas, and adrenal glands are unremarkable. Kidneys: The kidneys have normal size and contour without evidence of solid mass or hydronephrosis. Vasculature: The aorta and IVC have normal caliber and position. The portal vein is patent. The proximal visceral and renal arteries are patent. Stomach: Postoperative change of the stomach compatible with sleeve gastrectomy. No definite extravasation of oral contrast identified. Other: Tiny amount of free intraperitoneal air. Posterior to the left hepatic lobe and extending into the epigastric region small amount of free pelvic fluid. There is a well-circumscribed rim-enhancing fluid collection conservatively measuring at least 10.5 x 7.9 x 3.9 cm. There is a second fluid collection along the greater curvature of the remnant with thick campo and increased central density measuring 8.4 x 6.7 x 13.5 cm Pelvis: Bladder: Urinary bladder is unremarkable. Bowel: No dilated loops of large or small bowel. Appendix: The appendix is not definitely identified. Pelvis: Prior hysterectomy. IMPRESSION: 1. Posterior to the left hepatic lobe and extending into the epigastric region there is a rim-enhancing fluid collection containing foci of air measuring at least 10.5 cm in greatest dimension. This is concerning for abscess formation. Postoperative hematoma or seroma are considerations. 2. Along the staple line at the greater curvature there is a thick-walled fluid collection with increased density measuring at least 13.5 cm. This is concerning for hematoma however superimposed infection not excluded. 3. No definite leak of oral contrast identified. 4. Tiny amount of free intraperitoneal air. Urgent finding reported to Dr. Hurtado at 08/24/2017 3:34 AM CDT This exam was performed according to our departmental dose-optimization program, which includes automated exposure control, adjustment of the mA and/or kV according to patient size and/or use of iterative reconstruction technique.
[2017-08-24 07:32] VITALS: BP 111/86
== END 2017-08-24 07:30 | disposition short-term general hospital (02) ==
LOC: ER 22:25
DX: A41.9 Sepsis, unspecified organism (principal); T81.4XXA Infection following a procedure, initial encounter; K65.1 Peritoneal abscess; K91.89 Other postprocedural complications and disorders of digestive system; R10.13 Epigastric pain; R10.12 Left upper quadrant pain; R10.10 Upper abdominal pain, unspecified; R51 Headache; R50.9 Fever, unspecified; R07.81 Pleurodynia; Z98.84 Bariatric surgery status; Z98.890 Other specified postprocedural states
CPT/HCPCS: 96376; 99285; 96361; 96375; 96365; 36415; 83690; 84703; 85025; 80053; 81001; 71045; 74177; A9270; J3010; J1630; J2405; J7030; J2543

== ENCOUNTER 2017-10-03 21:01 | Emergency (ER) | payer MEDICARE, MEDICAID ==
[2017-10-03] MEDS ORDERED: MORPHINE SULFATE 10 MG/ML INJ IV ONE (21:35)
[2017-10-03] MEDS ORDERED: NORMAL SALINE 1000 ML 1,000 ML IV ONE (21:35)
--- NOTE | 2017-10-03 21:37 | ER Document Report ---
ED GI/ - General Chief Complaint: Abdominal Pain Stated Complaint: ABDOMINAL PAIN Time Seen by Provider: 10/03/17 21:33 Notes: The patient is a 37-year-old female, past medical history gastric sleeve [address] Delvin Lynch at [facility] with abscess formation 1 month after the surgery, presents with worsening left upper quadrant abdominal pain and a fever to 102. She is also having some nausea and cough. She took Tylenol and Motrin just prior to arrival. She denies diarrhea, constipation, urinary symptoms, rash, headache vomiting. TRAVEL OUTSIDE OF THE [place] IN LAST 30 DAYS: No - Related Data Allergies/Adverse Reactions: gabapentin Allergy (Verified 10/03/17 21:04) lamotrigine [From Lamictal] Allergy (Verified 10/03/17 21:04) Sulfa (Sulfonamide Antibiotics) Allergy (Verified 10/03/17 21:04) sumatriptan [From Imitrex] Allergy (Verified 10/03/17 21:04) Past Medical History - General Information source: Patient - Social History Smoking Status: Unknown if Ever Smoked Family History: Reviewed & Not Pertinent Renal/ Medical History: Denies: Hx Peritoneal Dialysis Psychiatric Medical History: Reports: Hx Anxiety, Hx Depression Past Surgical History: Reports: Hx Appendectomy, Hx Cholecystectomy, Hx Hysterectomy, Hx Tonsillectomy - Immunizations Immunizations up to date: Yes Hx Diphtheria, Pertussis, Tetanus Vaccination: Yes Review of Systems - Review of Systems Notes: REVIEW OF SYSTEMS: CONSTITUTIONAL: +fevers, -chills EENT: -eye pain, -difficulty swallowing, -nasal congestion CARDIOVASCULAR: -chest pain, -syncope. RESPIRATORY: +cough, -SOB GASTROINTESTINAL: +LUQ abdominal pain, +nausea, -vomiting, -diarrhea GENITOURINARY: -dysuria, -hematuria MUSCULOSKELETAL: -back pain, -neck pain SKIN: -rash or skin lesions. HEMATOLOGIC: -easy bruising or bleeding. LYMPHATIC: -swollen, enlarged glands. NEUROLOGICAL: -altered mental status or loss of consciousness, -headache, - neurologic symptoms PSYCHIATRIC: -anxiety, -depression. ALL OTHER SYSTEMS REVIEWED AND NEGATIVE. Physical Exam - Vital signs Vitals: Temp Pulse Resp BP Pulse Ox 99.7 F 133 H 16 118/88 H 95 10/03/17 21:07 10/03/17 21:07 10/03/17 21:07 10/03/17 21:07 10/03/17 21:07 - Notes Notes: PHYSICAL EXAMINATION: GENERAL: Uncomfortable. HEAD: Atraumatic, normocephalic. EYES: Pupils equal round and reactive to light, extraocular movements intact, sclera anicteric, conjunctiva are normal. ENT: nares patent, oropharynx clear without exudates. Moist mucous membranes. NECK: Normal range of motion, supple without lymphadenopathy LUNGS: Crackles in left lower lobe. HEART: Tachycardia, regular rhythm. ABDOMEN: Soft, moderate LUQ tenderness, normoactive bowel sounds. +guarding, + rebound. No masses appreciated. EXTREMITIES: Normal range of motion, no pitting or edema. No cyanosis. NEUROLOGICAL: Cranial nerves grossly intact. Normal speech. Normal sensory and motor exams. PSYCH: Normal mood, normal affect. SKIN: Warm, Dry, normal turgor, no rashes or lesions noted. Course - Re-evaluation Re-evalutation: Patient with fever, increasing LUQ abdominal pain and nausea. Her CT scan shows gastric sleeve leaking with fistula formation to a perigastric abscess. She also possibly may have an empyema or pneumonia. Due to her recent hospitalizations, broad-spectrum antibiotics started for the patient. Her blood pressures remain normal and lactate is normal. 10/04/17 00:33 Called over to [facility] to transfer due to patient request back to facility where she had her surgery by Dr. Delvin Lynch. 10/04/17 00:[address] Marx ([facility] surgeon [employer] middle[employer] architect) and he has accepted patient as a direct admission. Arranging transportation now. - Vital Signs Vital signs: Temp Pulse Resp BP Pulse Ox 99.7 F 133 H 20 120/82 95 10/03/17 21:07 10/03/17 21:07 10/04/17 00:00 10/03/17 23:00 10/04/17 00:00 - Laboratory Result Diagrams: 10/03/17 21:50 10/03/17 21:50 Laboratory results interpreted by me: 10/03/17 10/03/17 10/03/17 21:50 21:50 22:01 Hgb 11.7 L MCH 26.4 L RDW 16.2 H Creatinine 0.41 L Glucose 113 H Alkaline Phosphatase 130 H Urine Ketones 20 H Urine Bilirubin SMALL H Urine Urobilinogen 4.0 H Ur Leukocyte Esterase TRACE H - Diagnostic Test Radiology reviewed: Image reviewed, Reports reviewed Radiology results interpreted by me: CT A/P: 1. Thick-walled outpouching of the stomach along the greater curvature at the suture line measuring 5.3 cm in greatest dimension containing administered oral contrast. These findings suggest gastric leak with fistulous communication to a perigastric abscess. 2. Small loculated left pleural effusion. Empyema is a possibility. Correlation with fluid sampling recommended. 3. Left basilar consolidation may represent pneumonia or atelectasis. Critical Care Note - Critical Care Note Total time excluding time spent on procedures (mins): 40 Discharge - Discharge Clinical Impression: Intra-abdominal abscess, Fistula, Possible Empyema Surgical complication Qualifiers: Surgical complication system/body Area: digestive system Surgical complication type: unspecified Timing of complication: postoperative complication Procedure type: digestive system Qualified Code(s): K91.89 - Other postprocedural complications and disorders of digestive system Pneumonia Qualifiers: Pneumonia type: due to unspecified organism Laterality: left Lung location: lower lobe of lung Qualified Code(s): J18.1 - Lobar pneumonia, unspecified organism Condition: Stable Disposition: On License Of [facility] Referrals: ANDREW AGUILLON MD [Primary Care Provider] - Follow up as needed
[2017-10-03 22:11] LABS: ABSOLUTE BASOPHILS # (AUTO) 0.1 10^3/uL (0.0-0.2); ABSOLUTE EOSINOPHILS # (AUTO) 0.1 10^3/uL (0.0-0.6); ABSOLUTE LYMPHOCYTES (AUTO) 2.1 10^3/uL (0.5-4.7); ABSOLUTE MONOCYTES (AUTO) 0.7 10^3/uL (0.1-1.4); ABSOLUTE NEUT (AUTO) 4.4 10^3/uL (1.7-8.2); BASOPHILS % (AUTO) 0.9 % (0-2); EOSINOPHILS % (AUTO) 1.2 % (0-6); HEMATOCRIT 36.2 % (36.0-47.0); HEMOGLOBIN 11.7 g/dL (12.0-15.5); LYMPHOCYTES % (AUTO) 28.4 % (13-45); MEAN CORPUSCULAR HEMOGLOBIN 26.4 pg (27.0-33.4); MEAN CORPUSCULAR HGB CONC 32.4 g/dL (32.0-36.0); MEAN CORPUSCULAR VOLUME 81 fl (80-97); MONOCYTES % (AUTO) 9.5 % (3-13); PLATELET COUNT 370 10^3/uL (150-450); RED BLOOD COUNT 4.45 10^6/uL (3.72-5.28); RED CELL DISTRIBUTION WIDTH 16.2 % (11.5-14.0); TOTAL CELLS COUNTED % (AUTO) 100 %; WHITE BLOOD COUNT 7.4 10^3/uL (4.0-10.5)
[2017-10-03] MEDS ORDERED: HYDROMORPHONE HCL INJ/PF 2 MG/ML AMPULE IV ONE ×2 (22:17→23:31)
[2017-10-03] MEDS ORDERED: METOCLOPRAMIDE HCL INJ/PF 10 MG/2 ML SDV IV ONE (22:17)
[2017-10-03 22:22] LABS: APPEARANCE,URINE SLIGHTLY-CLOUDY; BILIRUBIN,URINE SMALL (NEGATIVE); COLOR,URINE AMBER; GLUCOSE, URINE NEGATIVE (NEGATIVE); KETONES,URINE 20 mg/dL (NEGATIVE); LEUKOCYTE ESTERASE,URINE TRACE (NEGATIVE); NITRITE,URINE NEGATIVE (NEGATIVE); PROTEIN,URINE NEGATIVE (NEGATIVE); URINE SPECIFIC GRAVITY 1.025
[2017-10-03 22:54] LABS: BILIRUBIN,TOTAL 0.7 mg/dL (0.2-1.3); NEONATAL BILIRUBIN RESULT 0.4 mg/dL (0.1-1.1); TOTAL PROTEIN 7.3 g/dL (6.3-8.2)
[2017-10-03 22:56] LABS: BLOOD UREA NITROGEN 10 mg/dL (7-20); CALCIUM 8.8 mg/dL (8.4-10.2); CHLORIDE 105 mmol/L (98-107); GLUCOSE 113 mg/dL (75-110); POTASSIUM 3.9 mmol/L (3.6-5.0)
[2017-10-03 22:57] LABS: ALANINE AMINOTRANSFERASE 19 U/L (9-52); ALBUMIN 3.7 g/dL (3.5-5.0); ALKALINE PHOSPHATASE 130 U/L (38-126); ANION GAP 11 (5-19); ASPARTATE AMINO TRANSFERASE 23 U/L (14-36); BILIRUBIN,DIRECT 0.4 mg/dL (0.0-0.4); CARBON DIOXIDE 26 mmol/L (22-30); LIPASE 27.5 U/L (23-300); SODIUM 141.9 mmol/L (137-145)
--- NOTE | 2017-10-03 23:58 | RADIOLOGY REPORT (SQ) ---
EXAM DESCRIPTION: CT ABDOMEN PELVIS WITH IV CONTRAST COMPLETED DATE/TME: 10/03/2017 21:34 CLINICAL HISTORY: s/p gastric sleeve, worsening LUQ pain COMPARISON: 08/24/2017 TECHNIQUE: CT of the abdomen and pelvis performed following IV administration of 96 mL of Isovue-370. Oral contrast administered. DLP: 1571.79 mGycm FINDINGS: Lung Bases: Small loculated left pleural effusion and left basilar consolidation with possible enhancing pleura. Bones: No destructive bone lesions identified. Abdomen: Liver: The liver has normal size and density. No intrahepatic mass or biliary dilatation. Gallbladder: Prior cholecystectomy. Spleen, Pancreas, and Adrenal Glands: The spleen, pancreas, and adrenal glands are unremarkable. Kidneys: The kidneys have normal size and contour without evidence of solid mass or hydronephrosis. Vasculature: The aorta and IVC have normal caliber and position. The portal vein is patent. The proximal visceral and renal arteries are patent. Stomach: Postoperative change in the stomach compatible with gastric sleeve. Along the greater curvature of the stomach there is an outpouching along the suture line measuring 5.3 x 4.9 cm with thick campo. Oral contrast is identified within this structure. Diffuse adjacent fat stranding of the mesentery. Interval resolution of left subhepatic fluid collection. Other: No free intraperitoneal air. Small amount of ascites. Pelvis: Bladder: Urinary bladder is unremarkable. Bowel: No dilated loops of large or small bowel. Appendix: No evidence of appendicitis. Pelvis: Prior hysterectomy. IMPRESSION: 1. Thick-walled outpouching of the stomach along the greater curvature at the suture line measuring 5.3 cm in greatest dimension containing administered oral contrast. These findings suggest gastric leak with fistulous communication to a perigastric abscess. 2. Small loculated left pleural effusion. Empyema is a possibility. Correlation with fluid sampling recommended. 3. Left basilar consolidation may represent pneumonia or atelectasis. This exam was performed according to our departmental dose-optimization program, which includes automated exposure control, adjustment of the mA and/or kV according to patient size and/or use of iterative reconstruction technique.
[2017-10-04] MEDS ORDERED: VANCOMYCIN HCL INJ 1000 MG VIAL IV ONE (00:28)
[2017-10-04] MEDS ORDERED: PIPERACILLIN/TAZOBACTAM 3.375 GM VIAL IV ONE (00:28)
[2017-10-04] MEDS ORDERED: HYDROMORPHONE HCL INJ/PF 2 MG/ML AMPULE IV PRN (00:30)
[2017-10-04] MEDS ORDERED: NORMAL SALINE 1000 ML 1,000 ML IV PRN (00:30)
[2017-10-04] MEDS ORDERED: ONDANSETRON HCL INJ/PF 4 MG/2 ML SDV IV ONE (01:16)
[2017-10-04] MEDS ORDERED: MORPHINE SULFATE 10 MG/ML INJ IV ONE (02:22)
[2017-10-04] MEDS ORDERED: VANCOMYCIN HCL INJ 1000 MG VIAL ONE (02:31)
[2017-10-04 03:52] VITALS: BP 108/68
== END 2017-10-04 03:56 | disposition short-term general hospital (02) ==
LOC: ER 21:01
DX: K91.89 Other postprocedural complications and disorders of digestive system (principal); J18.1 Lobar pneumonia, unspecified organism; T81.4XXA Infection following a procedure, initial encounter; K65.1 Peritoneal abscess; J86.0 Pyothorax with fistula; R10.9 Unspecified abdominal pain; R11.0 Nausea; R05 Cough; Z88.2 Allergy status to sulfonamides; Z90.49 Acquired absence of other specified parts of digestive tract; Z90.710 Acquired absence of both cervix and uterus
CPT/HCPCS: 96376; 99291; 96361; 96375; 96365; 96366; 96368; 36415; 87040; 83690; 84703; 85025; 80053; 81001; 83605; 74177; J2765; J2270 ×2; J1170 ×2; J2405; J7030 ×2; J3370; J2543

== ENCOUNTER 2017-10-25 19:37 | Emergency (ER) | payer MEDICARE, MEDICAID ==
[2017-10-25] MEDS ORDERED: OXYCODONE-ACETAMINOPHEN 5-325 MG TABLET PO ONE (22:12)
--- NOTE | 2017-10-25 22:19 | ER Document Report ---
ED General - General Chief Complaint: Sunburn Stated Complaint: SUN BURN Time Seen by Provider: 10/25/17 21:58 Notes: Patient presents concern a sunburn on her legs. Patient [place] the [place] and since that time has developed red burning sunburn bilateral anterior aspect of bilateral lower extremities. Denies any fevers or chills. Due to pain comes to the emergency department TRAVEL OUTSIDE OF THE [place] IN LAST 30 DAYS: No - Related Data Allergies/Adverse Reactions: gabapentin Allergy (Verified 10/03/17 21:04) lamotrigine [From Lamictal] Allergy (Verified 10/03/17 21:04) Sulfa (Sulfonamide Antibiotics) Allergy (Verified 10/03/17 21:04) sumatriptan [From Imitrex] Allergy (Verified 10/03/17 21:04) Past Medical History - Social History Smoking Status: Current Every Day Smoker Frequency of alcohol use: None Drug Abuse: None Family History: Reviewed & Not Pertinent Patient has suicidal ideation: No Patient has homicidal ideation: No Renal/ Medical History: Denies: Hx Peritoneal Dialysis Psychiatric Medical History: Reports: Hx Anxiety, Hx Depression Past Surgical History: Reports: Hx Abdominal Surgery - gastric sleeve; abd stent , Hx Appendectomy, Hx Cholecystectomy, Hx Hysterectomy, Hx Tonsillectomy - Immunizations Immunizations up to date: Yes Hx Diphtheria, Pertussis, Tetanus Vaccination: Yes Review of Systems - Review of Systems Constitutional: No symptoms reported EENT: No symptoms reported Cardiovascular: No symptoms reported Respiratory: No symptoms reported Gastrointestinal: No symptoms reported Genitourinary: No symptoms reported Female Genitourinary: No symptoms reported Musculoskeletal: No symptoms reported Skin: See HPI Hematologic/Lymphatic: No symptoms reported Neurological/Psychological: No symptoms reported Physical Exam - Vital signs Vitals: Temp Pulse Resp BP Pulse Ox 98.3 F 116 H 16 122/68 98 10/25/17 20:01 10/25/17 20:01 10/25/17 20:01 10/25/17 20:01 10/25/17 20:01 - General General appearance: Appears well, Alert - Respiratory Respiratory status: No respiratory distress - Cardiovascular Rhythm: Regular Heart sounds: Normal auscultation Murmur: No - Skin Irregularity with: Tenderness - Severe sunburn bilateral lower extremities anterior aspect of legs and carlos. No blistering no skin sloughing no signs of cellulitis or Course - Re-evaluation Re-evalutation: 10/25/17 22:14 Patient has sunburn on bilateral lower extremities with no evidence of infection. Discussed would provide lidocaine cream and return precautions provided regarding any signs of infections to be reevaluated by medical professional - Vital Signs Vital signs: Temp Pulse Resp BP Pulse Ox 98.3 F 116 H 16 122/68 98 10/25/17 20:01 10/25/17 20:01 10/25/17 20:01 10/25/17 20:01 10/25/17 20:01 Discharge - Discharge Clinical Impression: Sunburn Condition: Good Disposition: HOME, SELF-CARE Instructions: Sunburn ([facility]) Prescriptions: Lidocaine 30 gm TP BID #1 tube Referrals: ANDREW AGUILLON MD [Primary Care Provider] - Follow up as needed
[2017-10-25 22:32] VITALS: BP 120/74
== END 2017-10-25 22:30 | disposition home or self-care (01) ==
LOC: ER 19:37
DX: L55.9 Sunburn, unspecified (principal); F17.200 Nicotine dependence, unspecified, uncomplicated; Z98.84 Bariatric surgery status; Z88.6 Allergy status to analgesic agent; Z88.8 Allergy status to other drugs, medicaments and biological substances; Z88.2 Allergy status to sulfonamides
CPT/HCPCS: 99282; A9270